=== PATIENT | male | born 1950 | race Caucasian/White ===

== ENCOUNTER 2019-12-22 14:37 | Outpatient (CLI) | payer MEDICARE ==
[~2019-12-22] VITALS: Ht 177.8 cm; Wt 107.7 kg
[2019-12-22] MEDS ORDERED: LOVA10TA PO (14:40)
[2019-12-22] MEDS ORDERED: LISI-556 PO (14:40)
[2019-12-22] MEDS ORDERED: BUDE10.22 IH (14:40)
[2019-12-22] MEDS ORDERED: RT-ALBUINH IH (14:40)
[2019-12-22] MEDS ORDERED: TRZ50T PO (14:40)
[2019-12-22] MEDS ORDERED: DICL75TA2 PO (14:40)
== END 2019-12-22 14:41 | disposition home or self-care (01) ==
LOC: PREOP 14:37
PROVIDERS: ATTEND Surgery
DX: Z01.818 Encounter for other preprocedural examination (principal)

== ENCOUNTER 2019-12-28 08:15 | Day surgery (SDC) | payer MEDICARE ==
[~2019-12-28] VITALS: Ht 117 cm; Wt 107.7 kg
[2019-12-28] VITALS (9 sets, daily range): BP systolic 118–144; BP diastolic 74–89
[~2019-12-28 08:15] MED LIST: BUDE10.22 IH; DICL75TA2 PO; LISI-556 PO; LOVA10TA PO; RT-ALBUINH IH; TRZ50T PO
[2019-12-28] MEDS ORDERED: LACTATED RINGERS 1,000 ML IV ONE (08:18)
--- OUTSIDE RECORDS SUMMARY | 2019-12-28 08:20 | XMS REPORT ---
Author Author [employer] Organization [employer] Address [address] [address] Care Team Providers Care Avionics Safety Inspector Name Role Phone PEYTON MACEDOJaciel Polanco Unavailable Unavailable Allergies The data below is from unstructured sourcesNo known allergies. Medications Medication Ingredient Drug Dose Dates Status Sig Sig Care Class(es) (Normalized) (Original) Provid er no Albuterol beta2-Adren 1 Active take 1 Albuterol no information ergic puff(s puff(s) by Sulfate name (1 source.) Agonist ) inhalation Active 2 (no every six RESPIRATORY phone) hours as (INHALATION) needed Every 6 Hours as needed for Shortness Of Breath 1 PUFF = 90 MCG 120 actuat Budesonide Corticoster Active no Budesonide /F no budesonide / oid, information ormoterol name 0.08 formoterol beta2-Adren Fumarate (no mg/actuat / ergic Active 2 phone) formoterol Agonist RESPIRATORY fumarate (INHALATION) 0.0045 Twice A Day mg/actuat metered dose inhaler (1 source.) diclofenac Diclofenac Nonsteroida Active no Diclofenac no sodium 75 l information Sodium name mg delayed Anti-inflam Active 75 (no release matory Drug ORAL Twice A phone) oral tablet Day With (1 source.) Meals lisinopril Lisinopril Angiotensin Active no Lisinopril no 5 mg oral Converting information Active 5 name tablet (1 Enzyme ORAL Daily (no source.) Inhibitor phone) lovastatin Lovastatin HMG-CoA Active no Lovastatin no 10 mg oral Reductase information Active 10 name tablet (1 Inhibitor ORAL Bedtime (no source.) phone) traZODone traZODone Serotonin Active no Trazodone no hydrochlori Reuptake information Hcl Active name de 50 mg Inhibitor 50 ORAL (no oral tablet Bedtime phone) (1 source.) Problems The data below is from unstructured sourcesNo problem information available.No known health concerns documented Procedures The data below is from unstructured sourcesNo procedure information available. Immunizations Normalized Immunization Date Notes Care Provider Facili ty Immunization influenza, high dose 11-10-2019 no information no name [facility] seasonal, [facility] preservative-free [facility] ([id number]) influenza, high dose 07-23-2018 no information no name [facility] seasonal, [facility] preservative-[facility] (85704) pneumococcal 11-10-2019 no information no name [facility] polysaccharide [facility] vaccine, 23 valent - [facility] (48144) tetanus toxoid, 09-10-2011 no information no name [facility] reduced diphtheria [facility] toxoid, and [facility] acellular pertussis ([id number]) vaccine, adsorbed Results Test Name Value Interpretation Reference Range Date Time Fa cility (Normalized) (Normalized) (Medline Reference) No panel information on 2019-11-09 Albumin 4.6 g/dL (N) 3.4 - 5.4 g/dL [facility] [Mass/Vol] [facility] (71289) Albumin DL <= 20 mg/dL (N) 0.2 - 1.9 mg/dL Comm [facility] mg/L (U) [facility] [Mass/Vol] [facility] (36625) Albumin/Creatini NOTE (N) [facility] Hea lth ne (U) [[facility] ratio] [facility] () Albumin/Globulin 1.6 {ratio} (N) 1 - 2.5 {ratio} Comm [facility] [Mass ratio] [facility] (33959) ALP [Catalytic 69 U/L (N) 44 - 147 U/L [facility] activity/Vol] [facility] (07244) ALT [Catalytic 21 U/L (N) 4 - 40 U/L [facility] ealt activity/Vol] [facility] (09313) AST [Catalytic 17 U/L (N) 10 - 34 U/L [facility] activity/Vol] [facility] (35911) Basophils (Bld) 0.179 10*3/uL (N) 0 - 0.3 10*3/uL [facility] [#/Vol] [facility] (43476) Basophils/100 1.7 % (N) 0.5 - 1 % [facility]th WBC (Bld) [facility] (20675) Bilirubin 0.6 mg/dL (N) 0.1 - 1.2 mg/dL [facility] [Mass/Vol] [facility] (72421) Calcium 9.6 mg/dL (N) 8.5 - 10.2 mg/dL [facility] [Mass/Vol] [facility] (08063) Chloride 100 mmol/L (N) 95 - 106 mmol/L [facility] Health [Moles/Vol] [facility] (48776) Cholesterol 167 mg/dL (N) 180 - 200 mg/dL [facility] [Mass/Vol] [facility] (03895) Cholesterol in 47 mg/dL (N) [facility] HDL [Mass/Vol] [facility] (46295) Cholesterol in 96 mg/dL (N) 0 - 100 mg/dL [facility] LDL [Mass/Vol] [facility] (94142) Cholesterol non 120 mg/dL (N) [facility] HDL [Mass/Vol] [facility] (89114) Cholesterol.tota 3.6 {ratio} (N) [facility]Cholesterol in [facility] HDL [Mass ratio] [facility] (37002) CO2 [Moles/Vol] 29 mmol/L (N) 23 - 29 mmol/L [facility] (92893) Creatinine (U) 38 mg/dL (N) [facility] [Mass/Vol] [facility] (34423) Creatinine 1.19 mg/dL (N) [facility] h [Mass/Vol] [facility] (17604) Eosinophils 0.21 10*3/uL (N) 0.05 - 0.5 [facility] (Bld) [#/Vol] 10*3/uL [facility] (13399) Eosinophils/100 2.0 % (N) 1 - 4 % [facility] WBC (Bld) [facility] (80072) Erythrocyte 12.7 % (N) 11.6 - 14.6 % [facility] ealt distribution [facility] width (RBC) [facility] [Ratio] (82882) GFR/1.73 sq M 73 (N) 90 - 120 [facility] He alth predicted among mL/min/{1.73_m2} mL/min/{1.73_m2} [facility] MDRD [facility] (S/P/Bld) [Vol (84547) rate/Area] GFR/1.73 sq 63 (N) 90 - 120 [facility] Heal th M.predicted MDRD mL/min/{1.73_m2} mL/min/{1.73_m2} [facility] (S/P/Bld) [Vol [facility] rate/Area] (21154) Globulin (S) 2.9 g/dL (N) 2 - 3.5 g/dL [facility] [Mass/Vol] [facility] (68237) Glucose 114 mg/dL (H) 60 - 125 mg/dL [facility] [Mass/Vol] [facility] (59557) HbA1c (Bld) 6.1 (H) [facility] h [Mass fraction] [facility] (46018) Hematocrit (Bld) 49.5 % (N) 36.1 - 50.3 % [facility] [Volume [facility] fraction] [facility] (10198) Hemoglobin (Bld) 16.9 g/dL (N) 12.1 - 17.2 g/dL [facility] [Mass/Vol] [facility] (79717) Lymphocytes 2.478 10*3/uL (N) 0.9 - 2.9 [facility] alth (Bld) [#/Vol] 10*3/uL [facility] (84768) Lymphocytes/100 23.6 % (N) 20 - 40 % [facility] WBC (Bld) [facility] (27736) MCH (RBC) 32.0 pg (N) 27 - 31 pg [facility] [Entitic mass] [facility] (22424) MCHC (RBC) 34.1 g/dL (N) 32 - 36 g/dL [facility] alth [Mass/Vol] [facility] (68947) MCV (RBC) 93.8 fL (N) 80 - 100 fL [facility] lth [Entitic vol] [facility] (89551) Monocytes (Bld) 0.735 10*3/uL (N) 0.3 - 0.9 [facility] [#/Vol] 10*3/uL [facility] (66893) Monocytes/100 7.0 % (N) 2 - 8 % Community [facility] alth WBC (Bld) [facility] (92332) Neutrophils 6.899 10*3/uL (N) 1.7 - 7 10*3/uL [facility] Health (Bld) [#/Vol] [facility] (09481) Neutrophils/100 65.7 % (N) 40 - 60 % [facility] WBC (Bld) [facility] (57837) Platelet mean 11.2 fL (N) 7.2 - 11.7 fL [facility] volume (Bld) [facility] [Entitic vol] [facility] (87087) Platelets (Bld) 319 10*3/uL (N) 150 - 450 [facility] [#/Vol] 10*3/uL [facility] (95239) Potassium 4.5 mmol/L (N) 3.7 - 5.2 mmol/L [facility] [Moles/Vol] [facility] (80480) Protein 7.5 g/dL (N) 6.4 - 8.3 g/dL [facility] [Mass/Vol] [facility] (02234) RBC (Bld) 5.28 10*6/uL (N) 4.2 - 6.1 [facility] lth [#/Vol] 10*6/uL [facility] (16225) Sodium 138 mmol/L (N) 135 - 145 mmol/L [facility] [Moles/Vol] [facility] (27901) Triglyceride 139 mg/dL (N) 0 - 150 mg/dL [facility] [Mass/Vol] [facility] (76024) Urea nitrogen 20 mg/dL (N) 7 - 20 mg/dL [facility] [Mass/Vol] [facility] (33664) Urea NOT APPLICABLE (no code) [facility] Healt h nitrogen/Creatin [facility] [Mass ratio] [facility] () WBC (Bld) 10.5 10*3/uL (N) 3.5 - 10.5 [facility] lth [#/Vol] 10*3/uL [facility] (30511) No panel information on 2019-05-06 Albumin 4.1 g/dL (N) 3.4 - 5.4 g/dL [facility] [Mass/Vol] [facility] () Albumin DL <= 20 mg/dL (N) 0.2 - 1.9 mg/dL Comm [facility] mg/L (U) [facility] [Mass/Vol] [facility] () Albumin/Creatini NOTE (N) [facility] lt ne (U) [[facility] () Albumin/Globulin 1.4 {ratio} (N) 1 - 2.5 {ratio} Comm [facility] [Mass ratio] [facility] () ALP [Catalytic 59 U/L (N) 44 - 147 U/L [facility] activity/Vol] [facility] () ALT [Catalytic 19 U/L (N) 4 - 40 U/L [facility] ealth activity/Vol] [facility] () AST [Catalytic 16 U/L (N) 10 - 34 U/L [facility] activity/Vol] [facility] () Basophils (Bld) 0.142 10*3/uL (N) 0 - 0.3 10*3/uL [facility] [#/Vol] [facility] (24494) Basophils/100 1.6 % (N) 0.5 - 1 % [facility] He alth WBC (Bld) [facility] (64282) Bilirubin 0.5 mg/dL (N) 0.1 - 1.2 mg/dL [facility] [Mass/Vol] [facility] (28489) Calcium 9.5 mg/dL (N) 8.5 - 10.2 mg/dL [facility] [Mass/Vol] [facility] (02382) Chloride 102 mmol/L (N) 95 - 106 mmol/L [facility] [Moles/Vol] [facility] (09963) Cholesterol 149 mg/dL (N) 180 - 200 mg/dL [facility] [Mass/Vol] [facility] (63671) Cholesterol in 45 mg/dL (N) [facility] HDL [Mass/Vol] [facility] (54115) Cholesterol in 84 mg/dL (N) 0 - 100 mg/dL [facility] LDL [Mass/Vol] [facility] (12499) Cholesterol non 104 mg/dL (N) [facility] HDL [Mass/Vol] [facility] (26827) Cholesterol.tota 3.3 {ratio} (N) [facility]Cholesterol in [facility] HDL [Mass ratio] [facility] (34383) CO2 [Moles/Vol] 29 mmol/L (N) 23 - 29 mmol/L [facility] (39554) Creatinine (U) 27 mg/dL (N) [facility] [Mass/Vol] [facility] (65671) Creatinine 1.03 mg/dL (N) [facility] [Mass/Vol] [facility] (46234) Eosinophils 0.187 10*3/uL (N) 0.05 - 0.5 [facility] He alth (Bld) [#/Vol] 10*3/uL [facility] (24491) Eosinophils/100 2.1 % (N) 1 - 4 % [facility] WBC (Bld) [facility] (86236) Erythrocyte 13.6 % (N) 11.6 - 14.6 % [facility] ealth distribution [facility] width (RBC) [facility] [Ratio] (79303) GFR/1.73 sq M 87 (N) 90 - 120 [facility] alth predicted among mL/min/{1.73_m2} mL/min/{1.73_m2} [facility] MDRD [facility] (S/P/Bld) [Vol (01677) rate/Area] GFR/1.73 sq 75 (N) 90 - 120 [facility] Heal th M.predicted MDRD mL/min/{1.73_m2} mL/min/{1.73_m2} [facility] (S/P/Bld) [Vol [facility] rate/Area] (68222) Globulin (S) 3.0 g/dL (N) 2 - 3.5 g/dL [facility] ealth [Mass/Vol] [facility] (29042) Glucose 102 mg/dL (H) 60 - 125 mg/dL [facility] [Mass/Vol] [facility] (25298) HbA1c (Bld) 5.8 (H) [facility] h [Mass fraction] [facility] (38403) Hematocrit (Bld) 49.6 % (N) 36.1 - 50.3 % [facility] [[facility]] [facility] (94693) Hemoglobin (Bld) 16.6 g/dL (N) 12.1 - 17.2 g/dL [facility] [Mass/Vol] [facility] (23976) Lymphocytes 2.278 10*3/uL (N) 0.9 - 2.9 [facility] He alth (Bld) [#/Vol] 10*3/uL [facility] (09829) Lymphocytes/100 25.6 % (N) 20 - 40 % [facility] WBC (Bld) [facility] (03729) MCH (RBC) 32.1 pg (N) 27 - 31 pg [facility] th [Entitic mass] [facility] (35203) MCHC (RBC) 33.5 g/dL (N) 32 - 36 g/dL [facility] [Mass/Vol] [facility] (69769) MCV (RBC) 95.9 fL (N) 80 - 100 fL [facility] Hea lth [Entitic vol] [facility] (21221) Monocytes (Bld) 0.703 10*3/uL (N) 0.3 - 0.9 [facility] [#/Vol] 10*3/uL [facility] (66502) Monocytes/100 7.9 % (N) 2 - 8 % [facility] WBC (Bld) [facility] (18318) Neutrophils 5.589 10*3/uL (N) 1.7 - 7 10*3/uL [facility] Health (Bld) [#/Vol] [facility] (85368) Neutrophils/100 62.8 % (N) 40 - 60 % [facility] WBC (Bld) [facility] (11390) Platelet mean 11.0 fL (N) 7.2 - 11.7 fL [facility] volume (Bld) [facility] [Entitic vol] [facility] (22527) Platelets (Bld) 286 10*3/uL (N) 150 - 450 [facility] [#/Vol] 10*3/uL [facility] (26425) Potassium 4.7 mmol/L (N) 3.7 - 5.2 mmol/L [facility] [Moles/Vol] [facility] (46318) Protein 7.1 g/dL (N) 6.4 - 8.3 g/dL [facility] [Mass/Vol] [facility] (04082) RBC (Bld) 5.17 10*6/uL (N) 4.2 - 6.1 [facility] lth [#/Vol] 10*6/uL [facility] (20003) Sodium 137 mmol/L (N) 135 - 145 mmol/L [facility] [Moles/Vol] [facility] (44628) Triglyceride 108 mg/dL (N) 0 - 150 mg/dL [facility] [Mass/Vol] [facility] (67933) Urea nitrogen 17 mg/dL (N) 7 - 20 mg/dL [facility] [Mass/Vol] [facility] (58114) Urea NOT APPLICABLE (no code) [facility]/Creatin [facility] [Mass ratio] [facility] (70353) WBC (Bld) 8.9 10*3/uL (N) 3.5 - 10.5 [facility] th [#/Vol] 10*3/uL [facility] (39040) Vital Signs The data below is from unstructured sources Vital Reading Result Col lection Date/Time Interventions No Information Plan of Treatment No Information Goals Patient Goal Desired Goal no information no information Social History Normalized Code Original Code Date Value Tobacco smoking status Tobacco smoking status no information Smokes tobacco daily NHIS NHIS (finding) no information no information 12-22-2019 Rarely Uses no information no information 12-22-2019 No no information no information 12-22-2019 Current Everyda y Smoker no information no information 12-22-2019 Cigarettes Sex Assigned At Sex Assigned At no information M ignacio Functional Status The data below is from unstructured sourcesNo Functional Status information available Mental Status The data below is from unstructured sourcesNo Mental Status Information Available Encounters Encounter Normalized Encounter Encounter Diagnosis Care Provi cora Organization Date Type 12-22-2019 Patient encounter no information (no phone) Luis Antonio ruiz [facility] (no phone) 12-22-2019 11-10-2019 Patient encounter no information no name (no phone) no organization name procedure (no phone) 11-09-2019 Patient encounter no information no name (no phone) no organization name procedure (no phone) 05-08-2019 Patient encounter no information no name (no phone) no organization name procedure (no phone) 05-06-2019 Patient encounter no information no name (no phone) no organization name procedure (no phone) 05-06-2019 Patient encounter no information no name (no phone) no organization name procedure (no phone) 02-05-2019 Patient encounter no information no name (no phone) no organization name procedure (no phone) 11-24-2018 Patient encounter no information no name (no phone) no organization name procedure (no phone) 11-17-2018 Patient encounter no information no name (no phone) no organization name procedure (no phone) 09-16-2017 Patient encounter no information no name (no phone) no organization name procedure (no phone) Medical Equipment The data below is from unstructured sourcesNo Medical Equipment Information available Payers Normalized Payer Value Medicare no information ([id number]) Evaluation note Note Type Note Facility Evaluation No Assessments Information Available A scension note [facility] ([id number]) Advance Directives Advance Directive Response Recorded Date/Time Advance Directives No Ma [facility] 2019 2:26pm Resuscitation Status Full Code December 22, 2019 2:26pm Additional Source Comments This clinical document has been generated using [employer] software that has been certified by the Office of the National Coordinator for Health Information Technology (ONC 15.99.04.3023.Diam.31.00.0.649718) and the National Committee for In Store Representative (NCQA, as an eMeasure certified technology). FOR RECORDS PERTAINING TO PATIENTS WHO ARE OR HAVE BEEN ENROLLED IN A CHEMICAL D EPENDENCY/SUBSTANCE ABUSE PROGRAM, SOME INFORMATION MAY BE OMITTED. This clinica l summary was aggregated from multiple sources. Caution should be exercised in using it in the provision of clinical care. This summary normalizes information from multiple sources, and as a consequence, information in this document may ma terially change the coding, format and clinical context of patient data. In alex tion, data may be omitted in some cases. CLINICAL DECISIONS SHOULD BE BASED ON T HE PRIMARY CLINICAL RECORDS. [employer] provides no warranty or guara ntee of the accuracy or completeness of information in this document.The followi ng information is based on time limited clinical information
--- OUTSIDE RECORDS SUMMARY | 2019-12-28 08:20 | XMS REPORT | Continuity of Care Document ---
Author Organization Unknown Address Unknown Phone Unavailable Allergies Active Description Code Type Severity Reaction Onset Reported/Identified Relationship to Patient Clinical Status Yes No Known Drug Allergies [id number] Drug Allergy Unknown N/A 12/22/2019 Medications There is no data. Problems Date Dx Coded Attending Type Code Diagnosis Diagnosed By 12/22/2019 ANA SPIVEY DO B Ot Z01.8 18 ENCOUNTER FOR OTHER PREPROCEDURAL EXAMIN 12/22/2019 ALLYSSA PACHECO ANA B Ot Z01.8 18 ENCOUNTER FOR OTHER PREPROCEDURAL EXAMIN 12/22/2019 ALLYSSA DO ANA B Ot Z01.8 18 ENCOUNTER FOR OTHER PREPROCEDURAL EXAMIN 12/22/2019 ALLYSSA DO ANA B Ot Z01.8 18 ENCOUNTER FOR OTHER PREPROCEDURAL EXAMIN Procedures There is no data. Results Test Result Range MICROALBUMIN/CREATININE RATIO, URINE - 0 05/06/19 08:21 CREATININE, RANDOM URINE 27 mg/dL 20-32 0 MICROALBUMIN <0.2 mg/dL See Note: MICROALBUMIN/CREATININE RATIO, RANDOM URINE NOTE mcg/mg creat <30 MICROALBUMIN/CREATININE RATIO, URINE - 0 11/09/19 08:52 CREATININE, RANDOM URINE 38 mg/dL 20-32 0 MICROALBUMIN <0.2 mg/dL See Note: MICROALBUMIN/CREATININE RATIO, RANDOM URINE NOTE mcg/mg creat <30 Encounters ACCT No. Visit Date/Time Discharge Status Pt. Type Provider Facility Loc./Unit Complaint [id number] 05/08/2019 09:15:00 05/08/2019 23:59: 59 CLS Outpatient [facility] [id number] 11/09/2019 08:30:00 Document Registration [id number] 05/06/2019 08:30:00 Document Registration [id number] 12/22/2019 14:37:00 020 14:41:00 DIS Outpatient ANA SPIVEY DO [facility] PREOP COLONOSCOPY/EGD [id number] 12/28/2019 12:10:00 P EN Preadmit ANA SPIVEY DO Via [facility] KENNETH +COLOGJOAQUIN
[2019-12-28] MEDS ORDERED: LACTATED RINGERS 1,000 ML IV PRN (08:30)
[2019-12-28] MEDS ORDERED: HURRICAINE EXT TUBE (BENZOCAINE) XX PRN (08:30)
--- NOTE | 2019-12-28 09:20 | Progress Note-Pre Operative ---
Pre-Operative Progress Note H&P Reviewed The H&P was reviewed, patient examined and no changes noted. Time Seen by Provider: 09:19 Date H&P Reviewed: Dec 28, 2019 Time H&P Reviewed: 09:20 Pre-Operative Diagnosis: +Rena Allred ERIC B DO Dec 28, 2019 09:20
[2019-12-28] MEDS ORDERED: PROPOFOL INJECTION 50 ML IV ONE (09:32)
[2019-12-28] MEDS ORDERED: MIDAZOLAM 2 MG/2 ML (VERSED) VIAL ONE (09:33)
[2019-12-28] MEDS ORDERED: proPOfol 200 MG/20 ML (DIPRIVAN) VIAL IV ONE (10:11)
--- NOTE | 2019-12-28 10:35 | Anesthesia-General Post-Op ---
MAC Patient Condition Mental Status/LOC: Same as Preop Cardiovascular: Satisfactory Nausea/Vomiting: Absent Respiratory: Satisfactory Pain: Controlled Complications: Absent Post Op Complications Complications None Follow Up Care/Instructions Patient Instructions None needed. Anesthesiology Discharge Order Discharge Order Patient is doing well, no complaints, stable vital signs, no apparent adverse anesthesia problems. No complications reported per nursing. EMELY ALLEN CRNA Dec 28, 2019 10:35
--- NOTE | 2019-12-28 10:38 | Progress Note-Post Operative ---
Post-Operative Progess Note Surgeon (s)/Pay Per Click Strategist (s) Surgeon ANA SPIVEY DO Pay Per Click Strategist: none Pre-Operative Diagnosis +Cologuard, Gastritis Post-Operative Diagnosis Gastritis Hiatal Hernia Esophagitis Polyp diverticula internal hemorrhoids poor prep Procedure & Operative Findings Date of Procedure 12/28/19 Procedure Performed/Findings EGD with bx Colon with snare Anesthesia Type IV sedation by WET MIXER Estimated Blood Loss Estimated blood loss (mL): scant Specimens/Packing Specimens Removed dudoenal bx antral bx body of stomach bx GE jxn bx Descending colon polyp ANA SPIVEY DO Dec 28, 2019 10:38
--- NOTE | 2019-12-28 10:40 | Endoscopy Discharge Instruct ---
Endo Procedure/Findings Findings 1.: Hiatal Hernia, Gastritis 2.: Polyp 3.: Diverticulosis 4.: Internal Hemorrhoids Discharge Instructions - Activity: You might feel a little sleepy until tomorrow. This is due to the medicine you received to relax you. Until tomorrow, you should: NOT drive a car, operate machinery or power tools. NOT drink any alcoholic beverages. NOT make any important decisions or sign importortant papers. Do not return to work until tomorrow, unless otherwise instructed. Resume previous activities tomorrow. Diet: Start by taking liquids. If you tolerate liquids, advance to solid food. 1.: Colonoscopy in 1 year 2.: EGD in 1 year Notify Physician - If you experience excessive bleeding, unusual abdominal pain, fever, or chest pain, contact your doctor immediately. ANA SPIVEY DO Dec 28, 2019 10:40
--- NOTE | 2019-12-28 14:27 | OPERATIVE REPORT ---
DATE OF SERVICE: 12/28/2019 PREOPERATIVE DIAGNOSIS: Positive Cologuard and gastritis. POSTOPERATIVE DIAGNOSES: Gastritis, hiatal hernia, esophagitis as well as some duodenitis and small polyp, diverticula and internal hemorrhoids. PROCEDURES PERFORMED: 1. EGD with biopsy. 2. Colonoscopy with snare polypectomy. SURGEON: Rashaun Laboy DO. PM HEAD COOK: None. ANESTHESIA: IV sedation by the TIGER MACHINE OPERATOR. SPECIMEN: Biopsy from the duodenum, antrum, body of stomach and GE junction as well as the descending colon polyp. BLOOD LOSS: Scant. FLUIDS: Per anesthesia. POSTOPERATIVE CONDITION: Stable. INDICATION FOR PROCEDURE: The patient is a 69-year-old male, who had a positive Cologuard and needed a workup. He also had some gastritis and needed an EGD. FINDINGS: The patient had duodenitis, gastritis, hiatal hernia, some mild esophagitis. He had a polyp in the descending colon, some diverticula and some internal hemorrhoids as well as a poor prep. PROCEDURE NOTE: After informed consent was obtained, the patient was brought to the endoscopy suite and placed on the bed in the left lateral decubitus position. He was administered IV sedation by the TIGER MACHINE OPERATOR who monitored his vitals the entire time, heart rate, blood pressure, pulse ox and started with the EGD, placed the scope down the mouth through the esophagus and then into the stomach and then pushed into the Duodenum. While going through the antrum I saw some gastritis, took a picture of this. The duodenum looked a little bit inflamed as well, so did a biopsy here, pulled back and then did a biopsy of the antrum. Retroflexed the scope, saw a small hiatal hernia, took a picture of this and then did a biopsy of the body of stomach and then pulled the scope into the GE junction, did a biopsy of the GE junction, then suctioned the air out of the stomach and pulled the scope up the esophagus and out the mouth. Switched camera, switched gloves, went down below, started the colonoscopy, pushed the scope in, on the way in, noted a very poor prep, lot of retained vegetable matter, unable to suction up some of the fluid because of this vegetable matter, but was able to get all the way to the cecum, took a picture of appendiceal orifice, noted the ileocecal valve and then some diverticula on the right side, slowly withdrew the scope insufflating to look circumferentially at the guerra looking the cecum, up the ascending colon to the hepatic flexure, then down the transverse colon, the splenic flexure, into the descending colon, saw a polyp in here, did a snare polypectomy and then continued down through the sigmoid colon and into the rectum, retroflexed in the rectal vault, saw some minimal internal hemorrhoids, took a picture of this and unfortunately the patient was not completely clean, so there is a possibility we missed small polyps. He will need a repeat colonoscopy in a year. He was then recovered in the endoscopy suite. Job ID: [id number] DocumentID: [id number] Dictated Date: 12/28/2019 13:17:17 Platform Software Engineer Date: 12/28/2019 14:26:35 Dictated By: DO CLAUDIA HARRISON
== END 2019-12-28 10:25 | disposition home or self-care (01) ==
LOC: ENDO 08:15
PROVIDERS: ATTEND Surgery
DX: K29.70 Gastritis, unspecified, without bleeding (principal); K22.70 Barrett's esophagus without dysplasia; K44.9 Diaphragmatic hernia without obstruction or gangrene; K20.9 Esophagitis, unspecified; K29.50 Unspecified chronic gastritis without bleeding; K63.5 Polyp of colon; K57.30 Diverticulosis of large intestine without perforation or abscess without bleeding; K64.8 Other hemorrhoids; E11.9 Type 2 diabetes mellitus without complications; E78.5 Hyperlipidemia, unspecified; M19.91 Primary osteoarthritis, unspecified site; F17.210 Nicotine dependence, cigarettes, uncomplicated; I10 Essential (primary) hypertension; J44.9 Chronic obstructive pulmonary disease, unspecified; Z79.899 Other long term (current) drug therapy
CPT/HCPCS: 88305; 88312